=== PATIENT | female | born 1955 | race Caucasian/White ===

== ENCOUNTER 2017-09-16 17:05 | Emergency (ER) | payer OTHER ==
[2017-09-16 17:37] VITALS: BP 155/73; PULSE 76; RESP 17; TEMP 97.6
[2017-09-16] MEDS ORDERED: DIPH,PERTUS(ACELL)TETVAC-LF 0.5 ML VIAL IM ONE (19:03)
--- NOTE | 2017-09-16 19:10 | ED ---
General Adult HPI - General Chief complaint: Wound/Laceration Stated complaint: Finger Lacerations Time Seen by Provider: 09/16/17 18:48 Source: patient, RN notes reviewed Mode of arrival: ambulatory Limitations: no limitations - History of Present Illness Initial comments: Patient is a 61-year-old female who presents emergency room today with a chief complaint of a laceration between the webspace of the third and fourth edges of the right hand. Patient does admit that she slept and encouraged that she was cleaning out a candle jar with a knife when it broke and she actually stabbed herself causing a laceration. She states she is unsure of her tetanus status. She states she did go to urgent care was advised to emergency room for further evaluation. Patient denies any other complaints or associated symptoms. She has full range motion and strength. Patient denies any recent fever, chills, shortness of breath, chest pain, back pain, abdominal pain, nausea or vomiting, headaches or visual changes, or any other complaints. - Related Data Home Medications Medication Instructions Recorded Confirmed Albuterol Inhaler [Ventolin Hfa 1 - 2 puff INHALATION RT-Q6H PRN 09/16/17 Inhaler] Mometasone Inhalr 220 Mcg/Puff 1 puff INHALATION RT-DAILY 09/16/17 09/16/17 [Asmanex] Omeprazole [PriLOSEC] 20 mg PO AC-BRKFST 09/16/17 09/16/17 PARoxetine [Paxil] 20 mg PO DAILY 09/16/17 09/16/17 Simvastatin [Zocor] 40 mg PO DAILY 09/16/17 09/16/17 Previous Rx's Medication Instructions Recorded Cephalexin [Keflex] 500 mg PO Q12HR 7 Days cap 09/16/17 Allergies Allergy/AdvReac Type Severity Reaction Status Date / Time latex Allergy Itching Verified 09/16/17 19:12 Review of Systems ROS Statement: Those systems with pertinent positive or pertinent negative responses have been documented in the HPI. ROS Other: All systems not noted in ROS Statement are negative. Past Medical History Past Medical History: Asthma, GERD/Reflux, Hyperlipidemia History of Any Multi-Drug Resistant Organisms: MRSA Date of last positivie culture/infection: 2014 MDRO Source:: right leg Additional Past Surgical History / Comment(s): right groin, cardiac ablasion Past Psychological History: Depression Smoking Status: Former smoker Past Alcohol Use History: Occasional Past Drug Use History: None Reported General Exam - General Exam Comments Initial Comments: General: The patient is awake and alert, in no distress, and does not appear acutely ill. Neck: The neck is supple, there is no tenderness or JVD. Cardiovascular: There is a regular rate and rhythm. No murmur, rub or gallop is appreciated. Respiratory: Lungs are clear to auscultation, respirations are non-labored, breath sounds are equal. No wheezes, stridor, rales, or rhonchi. Musculoskeletal: Full range motion. Sensation intact pulses equal bilaterally 2 + per strength is 5/5. Neurological: A&O x 3. CN II-XII intact, There are no obvious motor or sensory deficits. Coordination appears grossly intact. Speech is normal. Skin: Patient to the webspace of the third and fourth digits. Mild venous oozing. Psychiatric: Normal mood and affect. Limitations: no limitations Course Vital Signs 09/16/17 17:34 Temperature 97.6 F Pulse Rate 76 Respiratory 17 Rate Blood Pressure 155/73 O2 Sat by Pulse 100 Oximetry Procedures - Procedures Initial comment: 1.5 cm linear laceration to the webspace between the third and fourth digits of the right hand. The skin was anesthetized with 1% lidocaine. The laceration was then cleansed with and irrigated with normal saline. The wound was inspected , and there was no evidence of injury to deep structures. No foreign body was noted in the wound. A total of 3 skin sutures were placed utilizing 4-0 nylon. Disposition Clinical Impression: Laceration Disposition: HOME SELF-CARE Condition: Good Instructions: Laceration (ED) Additional Instructions: Please return to the emergency room in 8-10 days to have sutures removed. Please watch for any signs of infection which may include increased pain, swelling, redness, fever or chills. Please return to emergency room for any signs of infection do occur. Please use clean soap and water over the area to prevent scabbing over your stitches. Please leave wound covered for the first 24-48 hours and then leave wound open to air. Please return to the emergency room for any other concerns. Prescriptions: Cephalexin [Keflex] 500 mg PO Q12HR 7 Days cap Referrals: Brianda Pope DO [Primary Care Provider] - 1-2 days Time of Disposition: 19:37
--- NOTE | 2017-09-16 19:33 | XR ---
PROCEDURE: XR hand complete RT DATE AND TIME: 09/16/2017 7:17 PM REFERRING PHYSICIAN: Johnathan Martinez CLINICAL INDICATION: PHH, Pain Laceration between right third and fourth digits from glass. TECHNIQUE: Department protocol. COMPARISON: None FINDINGS: There is no fracture or malalignment. The soft tissues are unremarkable. No radiopaque fore ign bodies. No subcutaneous emphysema. IMPRESSION: NO ACUTE PROCESS.
== END 2017-09-16 19:54 | disposition home or self-care (01) ==
LOC: EC 17:05
DX: S61.411A Laceration without foreign body of right hand, initial encounter (principal); E78.5 Hyperlipidemia, unspecified; J45.909 Unspecified asthma, uncomplicated; K21.9 Gastro-esophageal reflux disease without esophagitis; F32.9 Major depressive disorder, single episode, unspecified; Z87.891 Personal history of nicotine dependence; Z79.51 Long term (current) use of inhaled steroids; Z79.899 Other long term (current) drug therapy; Z91.040 Latex allergy status; Z23 Encounter for immunization; W26.0XXA Contact with knife, initial encounter; Y93.89 Activity, other specified
CPT/HCPCS: 12001; 90471; 90715; 99283